=== PATIENT | female | born 1990 | race Hispanic/Latino ===

== ENCOUNTER 2023-10-06 09:22 | Observation (INO) | payer OTHER, SELFPAY ==
--- NOTE | ~2023-10-06 | CT_ITS ---
EXAMINATION: CT abdomen pelvis wo con DATE: 10/06/2023 12:37 INDICATION: Flank pain. TECHNIQUE: Computed tomography (CT) of the abdomen and pelvis was performed without intravenous contr ast. Automated exposure control and iterative reconstruction technique were employed. The dose-length product was 228.98 mGy-cm. COMPARISON: None. FINDINGS: The visualized portions of lung bases demonstrate mild atelectasis. No pleural effusion. Th e heart size is normal. No pericardial effusion. The liver, gallbladder, spleen, pancreas, adrenal gl ands, and right kidney are normal. There are 5 stones in left kidney measuring up to 4 mm. There are no dilated loops of bowel. The appendix is normal. There are no pathologically enlarged lymph nodes. There is no free intraperitoneal fluid. The bones are unremarkable. IMPRESSION: 1. Small nonobstructing left kidney stones. Reviewed, dictated and finalized at location A.
[2023-10-06 09:24] VITALS: PULSE 108; RESP 19; TEMP 37.7; O2SAT 99
--- NOTE | 2023-10-06 11:17 | PC.NURSE ---
Pain on the right side of her abdomen that is tender to the touch
[2023-10-06 11:28] LABS: BEDSIDEPREGUCG Negative
--- NOTE | 2023-10-06 11:29 | ED.GENADULT ---
HPI - General Adult General Chief complaint: Abdominal Pain Stated complaint: Flank Pain Time Seen by Provider: 10/06/23 11:23 History of Present Illness HPI narrative: Patient is a 33-year-old female who presents ER with right-sided flank pain. Ongoing over last 3 days. Associated with dysuria urinary frequency and a bad odor to the urine. Patient has been having fevers and chills as well as fatigue. No vomiting. No diarrhea. She has some abdominal discomfort in right lower quadrant. History obtained through stratus. Related Data Home Medications Medication Instructions Recorded Confirmed No Home Medications 10/06/23 10/06/23 Allergies Allergy/AdvReac Type Severity Reaction Status Date / Time No Known Allergies Allergy Verified 10/06/23 09:33 Review of Systems Review of Systems: All systems reviewed & are unremarkable except as noted in HPI and below Constitutional: Constitutional: Reports chills, Reports fatigue and Reports fever(s) ENT: Reports system reviewed and no additional complaints, except as documented Cardiovascular: Cardiovascular: Reports no additional cardiovascular complaints Respiratory: Respiratory: Reports no additional respiratory complaints Gastrointestinal: Gastrointestinal: Reports abdominal pain, Denies diarrhea, Reports nausea and Denies vomiting Genitourinary: Genitourinary: Reports nocturia, Reports dysuria, Reports flank pain and Denies urinary incontinence PMFSH Past Medical History Medical History (Updated 10/06/23 @ 18:43 by Anselmo Dickerson MD) Healthy female adult Surgical History Surgical History (Updated 10/06/23 @ 18:41 by Anselmo Dickerson MD) No history of previous surgery Social History Social History Smoking status: Never smoker Alcohol intake: never Substance use: never Do You Feel Safe in your Home?: Yes Lack of Transportation: No Lack of Food: Never True Current Housing: Decline to Answer Concerned About Future Housing: Decline to Answer Difficulty Paying Gas/Electric Bills: Decline to Answer Difficulty Paying for Meds: Decline to Answer Currently Unemployed: Decline to Answer Education: Decline to Answer Difficulty w/ Childcare or Family Care: Decline to Answer Spiritual care concerns: No Exam Narrative: GENERAL: Fatigue-appearing, well-nourished, and in no acute distress. HEAD: Normocephalic, atraumatic. ENT: Mucous membranes moist. CHEST: Clear to auscultation. No respiratory distress. HEART: Regular rate and rhythm. Normal peripheral pulses. ABDOMEN: Soft, nontender, nondistended. Right CVA tenderness EXTREMITIES: Normal range of motion. No edema. SKIN: Warm, dry, no rash. NEURO: Alert and oriented x3. PSYCH: Normal mood and affect. Course Vital Signs Vital signs: Vital Signs Temperature 99.9 F H 10/06/23 09:24 Pulse Rate 108 H 10/06/23 09:24 Respiratory Rate 19 10/06/23 09:24 Pulse Oximetry 99 10/06/23 09:24 Oxygen Delivery Room Air 10/06/23 09:24 Temperature 98.4 F 10/06/23 16:20 Pulse Rate 80 10/06/23 16:20 Respiratory Rate 15 10/06/23 16:20 Blood Pressure 100/62 10/06/23 16:20 Pulse Oximetry 98 10/06/23 16:20 Oxygen Delivery Room Air 10/06/23 09:24 Medical Decision Making MDM Narrative Medical decision making narrative: -Course: remained comfortable in the ER. -Co-morbidities complicating care: None -Social determinants of health: Vietnamese-speaking -External Chart Review: None -Hx from independent Sources: None -Independent interpretation of studies: Urinalysis with evidence of infection. Significant leukocytosis of 20.5. Mild hypokalemia. Normal renal function and lactic acid. No obstructing renal stones on CT of the abdomen pelvis. -Interventions: Her normal saline 1 L IV, morphine 4 mg IV, Zofran 4 mg IV, Tylenol 1000 mg p.o., ceftriaxone 1 g IV. -Shared decision making / Disposition: Admit to hospitalist service. Vi
[2023-10-06 11:31] LABS: Basophils Percent Auto 0.1 % (0.2-1.2); Hematocrit 36.8 % (37.0-47.0); Hemoglobin 12.1 g/dL (12.0-15.0); Immature Granulocyte Percent A 0.5 % (0-0.5); Lymphocytes Percent Auto 2.9 % (18.3-44.2); Mean Corpuscular HGB Conc 32.9 g/dl (32-36); Mean Corpuscular Hemoglobin 27.1 pg (26-34); Mean Corpuscular Volume 82.5 fl (80-100); Mean Platelet Volume 9.2 fl (7.4-10.4); Monocytes Absolute Auto 0.9 K/mm3 (0.1-0.6); Monocytes Percent Auto 4.4 % (2.6-8.5); Neutrophils Absolute Auto 18.8 K/mm3 (1.3-6.7); Neutrophils Percent Auto 92.1 % (45.5-73.1); Platelet Count Result 313 k/mm3 (150-375); Red Blood Count 4.46 M/mm3 (4.2-5.4); Red Cell Distribution Width 13.2 % (11.5-14.5); White Blood Count 20.5 K/mm3 (4.5-10.0)
[2023-10-06 11:43] LABS: Alanine Aminotransferase 22 U/L (6-35); Albumin Level 4.6 g/dL (3.5-5.1); Alkaline Phosphatase 109 U/L (38-126); Anion Gap 11 mmol/L (4-12); Aspartate Amino Transferase 21 U/L (14-36); Bilirubin,Total 0.9 mg/dL (0.2-1.3); Blood Urea Nitrogen 9 mg/dL (7-17); Calcium 8.6 mg/dL (8.4-10.2); Carbon Dioxide 20 mmol/L (22-30); Chloride 104 mmol/L (98-107); Estimated CRCL calculation 93 ml/min; Estimated Glomerular Filt Rate > 60; Glucose 94 mg/dL (65-110); Lipase 40 U/L (23-300); Potassium 3.1 mmol/L (3.4-5.0); Sodium 135 mmol/L (137-145)
[2023-10-06 11:50] LABS: Add Urine Microscopic? YES; Appearance Urine Clear (Clear); Bacteria Urine 3+ /hpf; Bilirubin Urine Negative (Negative); Blood Urine 3+ (Negative); Color Urine Yellow (Yellow); Glucose Urine UA Negative (Negative); Ketones Urine 4+ mg/dL (Negative); Leukocyte Esterase Ur Trace LEU/UL (Negative); Nitrate Urine Negative (Negative); Non Pathogenic Casts 0-2; Protein Urine 2+ mg/dL (Negative); RBC Urine 51-100 /hpf (0-2); Specific Grav Ur 1.019 (1.001-1.035); Squamous Epithelial Cell Urine Few /hpf (Few)
[2023-10-06 11:56] VITALS: BP 128/76; PULSE 98; RESP 18; TEMP 39; O2SAT 100
[2023-10-06] MEDS: ONDANSETRON INJ 4 MG/2 ML VIAL IV PUSH (11:57)
[2023-10-06] MEDS: SODIUM CHLORIDE 0.9% IV 1,000 ML 999 ML IV CONT ×2 (11:59→12:57)
[2023-10-06] MEDS: MORPHINE SULFATE (*CRX) 4 MG/ML INJ IV PUSH (11:59)
[2023-10-06] MEDS: ACETAMINOPHEN 500 MG TABLET 1000 MG PO (12:15)
[2023-10-06 12:56] VITALS: TEMP 37.8
[2023-10-06 14:39] LABS: Lactic Acid Reflex 0.6 mmol/L (0.7-2.0)
--- NOTE | 2023-10-06 15:23 | PC.NURSE ---
Patient ambulated to the restroom with steady gate
[2023-10-06 16:20] VITALS: BP 100/62; PULSE 80; RESP 15; TEMP 36.9; O2SAT 98
[2023-10-06 17:28] VITALS: BMI 26.4
--- NOTE | 2023-10-06 17:29 | ADMGEN ---
This patient, Dave Wood, was admitted to Medical Room 342-01. Patient/family oriented to hospital policies and general routines including ID bracelet, bed and alarms, visiting hours, pain management, procedures, bathroom and other care routines, personal items, smoking policy, room service/diet, and visiting hours. Information on how to activate the Rapid Response Team has been discussed. Patient/Family are encouraged to report perceived risks to care and to ask questions if they do not understand what they are told or what they should do.
[2023-10-06] MEDS: SODIUM CHLORIDE 0.9% IV 1,000 ML 125 ML IV CONT ×2 (17:33→23:57)
[2023-10-06] MEDS: MORPHINE SULFATE (*CRX) 2 MG/ML INJ IV PUSH ×2 (17:37→19:33)
--- NOTE | 2023-10-06 18:28 | PM.IMHP ---
H&P: HPI History of Present Illness Date/Time: 10/06/23 18:28 Chief Complaint: Flank Pain, Fever Narrative: 33 y/o F presents here with flank pain, N/V, and fever with PMH of kidney stones and pyelonephritis. The patient presents here from home for further evaluation of flank pain, fever, nausea, and vomiting. Initially started on morning with right lower abdominal pain. Then developed nausea, vomiting, and fever later that same day. Patient had similar pain 15 days and another episode 2 months ago prior to episode that started on . Patient was not evaluated 15 days ago but was evaluated 2 months ago. Told then that she had a cyst to the left kidney and infection to the right kidney. Currently reporting fever, dizziness when she sits down, and headache. Initial VS at presentation: 99.9? F, HR 108, RR 19, 128/76, and 99% on RA. ED workup showed: WBC 20.5, no anemia, potassium 3.1, creatinine 0.6 and GFR >60, lactic 0.6. UA consistent with UTI. Negative test. CT of the abdomen pelvis showed small nonobstructing left kidney stones. Review of Systems Review of Systems: All systems reviewed & are unremarkable except as noted in HPI and below PMFSH Past Medical History Medical History Healthy female adult Surgical History Surgical History No history of previous surgery Social History Social History Smoking status: Never smoker Alcohol intake: never Substance use: never Do You Feel Safe in your Home?: Yes Lack of Transportation: No Lack of Food: Never True Current Housing: Decline to Answer Concerned About Future Housing: Decline to Answer Difficulty Paying Gas/Electric Bills: Decline to Answer Difficulty Paying for Meds: Decline to Answer Currently Unemployed: Decline to Answer Education: Decline to Answer Difficulty w/ Childcare or Family Care: Decline to Answer Spiritual care concerns: No Meds Home Medications and Allergies Home Medications Medication Instructions Recorded Confirmed Type No Home Medications 10/06/23 10/06/23 History Allergies Allergy/AdvReac Type Severity Reaction Status Date / Time No Known Allergies Allergy Verified 08/02/24 09:33 Vital Signs Vital Signs - 24 hr 10/06/23 09:24 10/06/23 11:56 10/06/23 12:56 Temperature 99.9 F H 102.2 F H 100.1 F H Pulse Rate 108 H 98 Respiratory Rate 19 18 Blood Pressure 128/76 Pulse Oximetry 99 100 Oxygen Delivery Room Air 10/06/23 16:20 Temperature 98.4 F Pulse Rate 80 Respiratory Rate 15 Blood Pressure 100/62 Pulse Oximetry 98 Oxygen Delivery Exam Const: General: no acute distress and uncomfortable Other: , female, ill-appearing HENMT: Face/Nose/Sinus: Normal nares present Mouth: Yes moist mucous membranes Eyes: General: appearance normal, both eyes and all related structures Sclera: sclerae normal Pupils: Equal, round and reactive pupils present EOM: EOMs intact bilaterally Resp: Effort & Inspection: normal respiratory effort Auscultation: clear to auscultation bilaterally Cardio: Rate: regular rate Rhythm: regular rhythm Other: S1-S2 present without murmur, rub, ectopy GI: GI Palp: Yes Soft to palpation Other: Tenderness to the right lower quadrant and right flank. Skin: General skin exam: normal color and no rashes or lesions noted Wounds: no wounds Neuro: Speech: normal speech Motor exam (neuro): 5/5 motor strength present throughout Sensory Exam: normal sensation Other: A&O x4 Psych: Mental Status: mental status grossly normal Affect: normal affect Other: Good insight and judgment, pleasant H&P: Results Labs Labs: Short CBC 10/06/23 Range/Units 11:22 WBC 20.5 H (4.5-10.0) K/mm3 Hgb 12.1 (12.0-15.0) g/d
--- NOTE | 2023-10-06 18:42 | PC.NURSE ---
flakito utilized for admission questions.
[2023-10-06 19:40] VITALS: BP 111/71; PULSE 102; RESP 20; TEMP 36.9; O2SAT 100
[2023-10-06] MEDS: diphenhydrAMINE HCl INJ 50 MG/ML VIAL 25 MG IV PUSH (23:56)
[2023-10-06] MEDS: KETOROLAC 30 MG/ML VIAL (*BKC) IV PUSH (23:57)
[2023-10-07] MEDS: MORPHINE SULFATE (*CRX) 2 MG/ML INJ IV PUSH (04:57)
[2023-10-07 05:01] LABS: Basophils Percent Auto 0.2 % (0.2-1.2); Eosinophils Percent Auto 0.1 % (0-4.4); Hematocrit 29.5 % (37.0-47.0); Hemoglobin 9.8 g/dL (12.0-15.0); Immature Granulocyte Absolute 0.06 K/mm3 (0.00-0.031); Immature Granulocyte Percent A 0.5 % (0-0.5); Lymphocytes Absolute Auto 1.18 K/mm3 (0.9-3.2); Lymphocytes Percent Auto 9.5 % (18.3-44.2); Mean Corpuscular HGB Conc 33.2 g/dl (32-36); Mean Corpuscular Hemoglobin 27.2 pg (26-34); Mean Corpuscular Volume 81.9 fl (80-100); Mean Platelet Volume 9.3 fl (7.4-10.4); Monocytes Absolute Auto 1.2 K/mm3 (0.1-0.6); Monocytes Percent Auto 9.9 % (2.6-8.5); Neutrophils Absolute Auto 9.9 K/mm3 (1.3-6.7); Neutrophils Percent Auto 79.8 % (45.5-73.1); Platelet Count Result 243 k/mm3 (150-375); Red Cell Distribution Width 13.1 % (11.5-14.5); White Blood Count 12.4 K/mm3 (4.5-10.0)
[2023-10-07 05:17] LABS: Anion Gap 10 mmol/L (4-12); Blood Urea Nitrogen 6 mg/dL (7-17); Calcium 8.1 mg/dL (8.4-10.2); Carbon Dioxide 18 mmol/L (22-30); Chloride 107 mmol/L (98-107); Estimated CRCL calculation 109 ml/min; Estimated Glomerular Filt Rate > 60; Glucose 98 mg/dL (65-110); Potassium 2.9 mmol/L (3.4-5.0); Sodium 135 mmol/L (137-145)
[2023-10-07 06:00] VITALS: BP 107/59; PULSE 60; RESP 20; TEMP 36.7; O2SAT 99
[2023-10-07] MEDS: SODIUM CHLORIDE 0.9% IV 1,000 ML 125 ML IV CONT ×2 (08:30→23:36)
[2023-10-07] MEDS: POTASSIUM CHLORIDE 20 MEQ ER TABLET 40 MEQ PO (09:25)
[2023-10-07] MEDS: POTASSIUM CHLORIDE INJ 40 MEQ in SODIUM CHLORIDE 0.9% IV 500 ML 130 MEQ IVPB (09:26)
[2023-10-07] MEDS: HYDROcodone/acetaminophen (*CRX) 5-325 MG TABLET 1 TAB PO ×3 (09:31→20:34)
[2023-10-07 13:05] VITALS: BP 112/72; PULSE 74; RESP 16; TEMP 36.8; O2SAT 100
--- NOTE | 2023-10-07 15:02 | P.PNIM_ITS ---
Progress Note: A&P Assessment and Plan (1) Sepsis: Qualifiers: Sepsis type: sepsis due to unspecified organism Sepsis acute organ dysfunction status: without acute organ dysfunction Qualified Code(s): A41.9 - Sepsis, unspecified organism Code(s): A41.9 - Sepsis, unspecified organism Status: Acute (2) Pyelonephritis: Code(s): N12 - Tubulo-interstitial nephritis, not specified as acute or chronic Status: Acute (3) UTI (urinary tract infection): Code(s): N39.0 - Urinary tract infection, site not specified Status: Acute Plan Sepsis secondary to pyelonephritis/UTI * IV fluid resuscitation. 30mg/kg for septic shock * reassessment of volume status/tissue perfusion * Rocephin * Monitor lactic acid levels q6hr. WNL * Repeat CBC, CMP. * Two sets of blood cultures pending * urine cultures. Pending- * CT abd/pelvis: Small nonobstructing left kidney stones. * Pain control UTI * Urine cultures and blood cultures pending * Continue IV hydration. * Monitor CBC, CMP watch for sepsis. * Monitor vital signs. * Rocephin * Code status: Full code per patient * CT abd/pelvis: Small nonobstructing left kidney stones. * Monitor for obstructive uropathy and pyelonephritis * OF note make sure p.o. antibiotic patient is discharged on is safe for she is Code status: Full code per patient DVT prophylaxis: Lovenox Stress ulcer prophylaxis: Protonix 40 daily PT/OT notes: Ambulatory Disposition: Patient continues admission to the medical unit for treatment of pyelonephritis UTI will discharge to home medically stable all information has been provided using staff interpreter. Time Spent With Patient Time with patient: 15 - 25 minutes Subjective Date/time seen: 10/07/23 15:02 Interval history: Admission: 33 y/o F presents here with flank pain, N/V, and fever with PMH of kidney stones and pyelonephritis. The patient presents here from home for further evaluation of flank pain, fever, nausea, and vomiting. Initially started on morning with right lower abdominal pain. Then developed nausea, vomiting, and fever later that same day. Patient had similar pain 15 days and another episode 2 months ago prior to episode that started on . Patient was not evaluated 15 days ago but was evaluated 2 months ago. Told then that she had a cyst to the left kidney and infection to the right kidney. Currently reporting fever, dizziness when she sits down, and headache. Initial VS at presentation: 99.9? F, HR 108, RR 19, 128/76, and 99% on RA. ED workup showed: WBC 20.5, no anemia, potassium 3.1, creatinine 0.6 and GFR >60, lactic 0.6. UA consistent with UTI. Negative test. CT of the abdomen pelvis showed small nonobstructing left kidney stones. 10/07/2023: Assumed Care Patient states pain has improved mildly, WBC trending down, febrile x 1 overnight. Discussed findings with patient using staff interpreter Jo Ann #[id number]. Review of Systems Review of Systems: All systems reviewed & are unremarkable except as noted in HPI and below Exam Narrative: Physical Exam: * GENERAL: Alert and oriented x 3. No acute distress. Hungarian speaking * EYES: EOMI. No scleral icterus. PERRLA. * HEENT: Moist mucous membranes. * LUNGS: Clear to auscultation bilaterally. No accessory muscle use. * CARDIOVASCULAR: Regular rate and rhythm. No murmur. No JVD. S1-S2 * ABDOMEN: Soft, non tenderness and non-diste
--- NOTE | 2023-10-07 15:02 | PM.IMPN ---
Progress Note: A&P Assessment and Plan (1) Sepsis: Qualifiers: Sepsis type: sepsis due to unspecified organism Sepsis acute organ dysfunction status: without acute organ dysfunction Qualified Code(s): A41.9 - Sepsis, unspecified organism Code(s): A41.9 - Sepsis, unspecified organism Status: Acute (2) Pyelonephritis: Code(s): N12 - Tubulo-interstitial nephritis, not specified as acute or chronic Status: Acute (3) UTI (urinary tract infection): Code(s): N39.0 - Urinary tract infection, site not specified Status: Acute Plan Sepsis secondary to pyelonephritis/UTI IV fluid resuscitation. 30mg/kg for septic shock reassessment of volume status/tissue perfusion Rocephin Monitor lactic acid levels q6hr. WNL Repeat CBC, CMP. Two sets of blood cultures pending urine cultures. Pending- CT abd/pelvis: Small nonobstructing left kidney stones. Pain control UTI Urine cultures and blood cultures pending Continue IV hydration. Monitor CBC, CMP watch for sepsis. Monitor vital signs. Rocephin Code status: Full code per patient CT abd/pelvis: Small nonobstructing left kidney stones. Monitor for obstructive uropathy and pyelonephritis OF note make sure p.o. antibiotic patient is discharged on is safe for she is Code status: Full code per patient DVT prophylaxis: Lovenox Stress ulcer prophylaxis: Protonix 40 daily PT/OT notes: Ambulatory Disposition: Patient continues admission to the medical unit for treatment of pyelonephritis UTI will discharge to home medically stable all information has been provided using material worker. Time Spent With Patient Time with patient: 15 - 25 minutes Subjective Date/time seen: 10/07/23 15:02 Interval history: Admission: 33 y/o F presents here with flank pain, N/V, and fever with PMH of kidney stones and pyelonephritis. The patient presents here from home for further evaluation of flank pain, fever, nausea, and vomiting. Initially started on morning with right lower abdominal pain. Then developed nausea, vomiting, and fever later that same day. Patient had similar pain 15 days and another episode 2 months ago prior to episode that started on . Patient was not evaluated 15 days ago but was evaluated 2 months ago. Told then that she had a cyst to the left kidney and infection to the right kidney. Currently reporting fever, dizziness when she sits down, and headache. Initial VS at presentation: 99.9? F, HR 108, RR 19, 128/76, and 99% on RA. ED workup showed: WBC 20.5, no anemia, potassium 3.1, creatinine 0.6 and GFR >60, lactic 0.6. UA consistent with UTI. Negative test. CT of the abdomen pelvis showed small nonobstructing left kidney stones. 10/07/2023: Assumed Care Patient states pain has improved mildly, WBC trending down, febrile x 1 overnight. Discussed findings with patient using material worker Jo Ann #[id number]. Review of Systems Review of Systems: All systems reviewed & are unremarkable except as noted in HPI and below Exam Narrative: Physical Exam: GENERAL: Alert and oriented x 3. No acute distress. German speaking EYES: EOMI. No scleral icterus. PERRLA. HEENT: Moist mucous membranes. LUNGS: Clear to auscultation bilaterally. No accessory muscle use. CARDIOVASCULAR: Regular rate and rhythm. No murmur. No JVD. S1-S2 ABDOMEN: Soft, non tenderness and non-distended. No palpable masses LT CVA tenderness. EXTREMITIES: No edema. Non-tender SKIN: No rashes or lesions. Skin warm, dry. NEUROLOGIC: No focal neurological deficits. CN II-XII grossly intact PSYCHIATRIC: Appropriate mood and affect. Good judgement and insight. No visual or auditory hallucinations. No suicidal or homicidal ideation. Objective Data Vital Signs Vital Signs: Vital Signs - 24 hr 10/06/23 16:20 10/06/23 18:38 10/06/23 19:40 Temperature 98.4 F 98.
[2023-10-07 20:02] VITALS: BP 126/78; PULSE 97; RESP 16; TEMP 38.3; O2SAT 98
[2023-10-08] MEDS: ONDANSETRON INJ 4 MG/2 ML VIAL IV PUSH (01:23)
[2023-10-08 04:41] VITALS: BP 111/67; PULSE 72; RESP 16; TEMP 36.9; O2SAT 98
[2023-10-08] MEDS: HYDROcodone/acetaminophen (*CRX) 5-325 MG TABLET 1 TAB PO (05:11)
[2023-10-08 07:45] LABS: Hematocrit 31.3 % (37.0-47.0); Hemoglobin 10.5 g/dL (12.0-15.0); Mean Corpuscular HGB Conc 33.5 g/dl (32-36); Mean Corpuscular Hemoglobin 27.1 pg (26-34); Mean Corpuscular Volume 80.7 fl (80-100); Mean Platelet Volume 9.3 fl (7.4-10.4); Platelet Count Result 252 k/mm3 (150-375); Red Blood Count 3.88 M/mm3 (4.2-5.4); Red Cell Distribution Width 13.2 % (11.5-14.5)
[2023-10-08 07:54] LABS: Anion Gap 8 mmol/L (4-12); Blood Urea Nitrogen 4 mg/dL (7-17); Calcium 8.5 mg/dL (8.4-10.2); Carbon Dioxide 24 mmol/L (22-30); Chloride 104 mmol/L (98-107); Estimated CRCL calculation 109 ml/min; Estimated Glomerular Filt Rate > 60; Glucose 102 mg/dL (65-110); Potassium 3.4 mmol/L (3.4-5.0); Sodium 136 mmol/L (137-145)
[2023-10-08 08:04] VITALS: O2SAT 99
--- NOTE | 2023-10-08 10:18 | PM.DS ---
DS: Admitting Diagnosis Discharge Date 10/08/2023 Admitting Diagnosis Sepsis/Pyelonephritis/UTI DS: Discharge Diagnosis Discharge Diagnosis (1) Sepsis: Qualifiers: Sepsis acute organ dysfunction status: without acute organ dysfunction Sepsis type: sepsis due to unspecified organism Qualified Code(s): A41.9 - Sepsis, unspecified organism Code(s): A41.9 - Sepsis, unspecified organism Status: Acute (2) Pyelonephritis: Code(s): N12 - Tubulo-interstitial nephritis, not specified as acute or chronic Status: Acute (3) UTI (urinary tract infection): Code(s): N39.0 - Urinary tract infection, site not specified Status: Acute Plan Sepsis secondary to pyelonephritis/UTI IV fluid resuscitation. 30mg/kg for septic shock reassessment of volume status/tissue perfusion Rocephin Monitor lactic acid levels q6hr. WNL Repeat CBC, CMP. Two sets of blood cultures pending urine cultures. Pending- CT abd/pelvis: Small nonobstructing left kidney stones. Pain control UTI Urine cultures and blood cultures pending Continue IV hydration. Monitor CBC, CMP watch for sepsis. Monitor vital signs. Rocephin Code status: Full code per patient CT abd/pelvis: Small nonobstructing left kidney stones. Monitor for obstructive uropathy and pyelonephritis OF note make sure p.o. antibiotic patient is discharged on is safe for she is Code status: Full code per patient DVT prophylaxis: Lovenox Stress ulcer prophylaxis: Protonix 40 daily PT/OT notes: Ambulatory Disposition: Discharge to home DS: Summary Hospital Course Reason for hospitalization: Sepsis/Pyelonephritis/UTI Hospital Course: Admission: 33 y/o F presents here with flank pain, N/V, and fever with PMH of kidney stones and pyelonephritis. The patient presents here from home for further evaluation of flank pain, fever, nausea, and vomiting. Initially started on morning with right lower abdominal pain. Then developed nausea, vomiting, and fever later that same day. Patient had similar pain 15 days and another episode 2 months ago prior to episode that started on . Patient was not evaluated 15 days ago but was evaluated 2 months ago. Told then that she had a cyst to the left kidney and infection to the right kidney. Currently reporting fever, dizziness when she sits down, and headache. Initial VS at presentation: 99.9? F, HR 108, RR 19, 128/76, and 99% on RA. ED workup showed: WBC 20.5, no anemia, potassium 3.1, creatinine 0.6 and GFR >60, lactic 0.6. UA consistent with UTI. Negative test. CT of the abdomen pelvis showed small nonobstructing left kidney stones. 10/07/2023: Assumed Care Patient states pain has improved mildly, WBC trending down, febrile x 1 overnight. Discussed findings with patient using nurse clinician Jo Ann #[id number]. 10/08/2023: DISCHARGED Patient with mild temp x 1 overnight but WBC 8.9 today and reports pain has improved. Culture grew ECOLI and there continued to be no growth in the blood cultures x 48hrs. Reveiwed information about discharge and the need to complete the ABX therapy as prescribed even if feeling better using an nurse clinician #[id number]. Instructed patient to seek medical attention is symptoms worsened after discharge with severe pain and high fevers. Status at Discharge Functional status at discharge: independent ambulation Overall status at discharge: patient is progressing back to baseline Time Spent with Patient Time attestation: Total time spent providing and/or coordinating discharge services: Exam Narrative: Physical Exam: GENERAL: Alert and oriented x 3. No acute distress. Ecuadorean speaking EYES: EOMI. No scleral icterus. PERRLA. HEENT: Moist mucous membranes. LUNGS: Clear to auscultation bilaterally. No accessory muscle use. CARDIOVASCULAR: Regular rate and rhythm. No murmur. No
== END 2023-10-08 11:29 | disposition home or self-care (01) ==
LOC: ANHED 15:45 → ANH3MED 16:37
PROVIDERS: Student in an Organized Health Care Education/Training Program; Admitting Provider General Practice; Emergency Provider Emergency Medicine; Visit Provider Nurse Practitioner Family
DX: A41.9 Sepsis, unspecified organism (principal); N12 Tubulo-interstitial nephritis, not specified as acute or chronic; N39.0 Urinary tract infection, site not specified; R51.9 Headache, unspecified
CPT/HCPCS: 36415; 74176; 80048; 80053; 81001; 81025; 83605; 83690; 85025; 85027; 87040; 87077; 87086; 87088; 87186; 96361; 96365; 96374; 96375; 96376; 99285; A9270; G0378; G0379; J0696; J1200; J1885; J2270; J2405; J3480; J7030; J7040